=== PATIENT | female | born 1970 | race Two or more races ===

== ENCOUNTER 2021-10-13 11:41 | Emergency (ER) | payer OTHER ==
[~2021-10-13] VITALS: Ht 160 cm; Wt 55.1 kg
[2021-10-13 12:51] VITALS: BP 137/69
[2021-10-13 13:27] LABS: BILIRUBIN,URINE NEGATIVE (NEG); CLARITY,URINE CLOUDY; COLOR,URINE YELLOW; NITRITE,URINE POSITIVE (NEG); PROTEIN,URINE 100 mg/dL (NEG-TRACE); UROBILINOGEN,URINE 0.2 mg/dL (0.2 mg/dL)
[2021-10-13 13:41] LABS: BACTERIA,URINE MANY /HPF (0-FEW); RBC,URINE OCC /HPF (0-2); WBC,URINE >40 /HPF (0-4)
[2021-10-13 13:47] LABS: INFLUENZA A PATIENT NEGATIVE (NEGATIVE); INFLUENZA B PATIENT NEGATIVE (NEGATIVE)
[2021-10-13] MEDS ORDERED: CEPH500T PO (14:23)
--- NOTE | 2021-10-13 14:24 | PHYS DOC ---
Past Medical History Past Surgical History: No Surgical History Smoking Status: Never Smoker Alcohol Use: None Drug Use: None Adult General Chief Complaint Chief Complaint: MULTIPLE COMPLAINTS HPI HPI Patient is a 51 year old female who presents with nausea, vomiting, low back pain, fever, fatigue and headache that began approximately 1 week ago. Patient states that she arrived from [place] 8 days ago. She finished ampicillin antibiotic treatment for UTI 10 days ago, but continues to have some discomfort on urination. She is worried that her current symptoms may be due to continued UTI or possible other illness. She states her symptoms now feel different than when she was originally diagnosed with UTI. Patient reports she got vaccinated against COVID-19 in July of last year. Shortly after, she became infected with COVID-19. She denies abdominal pain, diarrhea, constipation, hematuria, focal weakness or paresthesias. She has no other complaints at this time. Patient is [place] Citizen-speaking. Interview and exam conducted in [place] Citizen. Review of Systems Review of Systems Constitutional: See HPI Eyes: Denies change in visual acuity, redness, or eye pain HENT: Denies nasal congestion or sore throat Respiratory: Denies cough or shortness of breath Cardiovascular: No additional information not addressed in HPI GI: See HPI : See HPI Musculoskeletal: See HPI Integument: Denies rash or skin lesions Neurologic: See HPI All other systems were reviewed and found to be within normal limits, except as documented in this note. Allergies Allergies Allergies Coded Allergies Type Severity Reaction Last Updated Verified No Known Drug Allergies 10/13/21 No Physical Exam Physical Exam Constitutional: Well developed, well nourished, no acute distress, non-toxic appearance. HENT: Normocephalic, atraumatic, bilateral external ears normal, nose normal. Eyes: EOMI, conjunctiva normal, no discharge. Neck: Normal range of motion, no stridor. Skin: Warm, dry, no erythema, no rash. Extremities: No tenderness, no cyanosis, no clubbing, ROM intact, no edema. Neurologic: Alert and oriented x4, steady and symmetrical gait, no focal deficits noted. Current Patient Data Vital Signs Vital Signs Date Time Temp Pulse Resp B/P (MAP) Pulse Ox O2 Delivery O2 Flow Rate FiO2 10/13/21 12:51 99.1 97 16 137/69 (91) 97 Room Air 99.1 Lab Values Laboratory Tests Test 10/13/21 13:20 Urine Collection Type Unknown Urine Color Yellow Urine Clarity Cloudy Urine pH 5.0 (<5.0-8.0) Urine Specific [place] 1.025 (1.000-1.030) Urine Protein 100 mg/dL (NEG-TRACE) Urine Glucose (UA) >=1000 mg/dL (NEG) Urine Ketones (Stick) 15 mg/dL (NEG) Urine Blood Small (NEG) Urine Nitrite Positive (NEG) Urine Bilirubin Negative (NEG) Urine Urobilinogen Dipstick 0.2 mg/dL (0.2 mg/dL) Urine Leukocyte Esterase Moderate (NEG) Urine RBC Occ /HPF (0-2) Urine WBC >40 /HPF (0-4) Urine Bacteria Many /HPF (0-FEW) Influenza Type A Antigen Negative (NEGATIVE) Influenza Type B Antigen Negative (NEGATIVE) Course & Med Decision Making Course & Med Decision Making Pertinent Labs and Imaging studies reviewed. (See chart for details) Patient is a 51-year-old female who recently underwent treatment for UTI who presents with multiple symptoms concerning for viral illness versus persistent UTI, or possibly both. COVID-19 infection cannot be excluded. Work-up today will include urinalysis, swabs for influenza A&B, COVID-19. Urinalysis does show evidence of UTI. Antibiotic treatment with ampicillin failed. Swabs for influenza A&B are negative. Patient advised that COVID-19 swab test results would not be available until tomorrow the next day. Treatment going forward will consist of supportive treatment and quarantine until COVID-19 test results become available. Additionally, patient will be treated with Keflex for her UTI. She was provided with return precautions. Patient and her family member at bedside understand and are agreeable to discharge plan. Dragon Disclaimer Dragon Disclaimer This electronic medical record was generated, in whole or in part, using a voice recognition dictation system. Departure Departure Impression: Primary Impression: UTI (urinary tract infection) Additional Impression: Person under investigation for COVID-19 Disposition: 01 HOME / SELF CARE / HOMELESS Condition: STABLE Patient Instructions: Urinary Tract Infection, [id number] Additional Instructions: Siga las siguientes medidas de tratamiento de apoyo: - Humidificador de vapor fro con agua corriente al lado de la cama mientras duerme - Mucinex (guaifenesina) segn instrucciones de la caja - Alternar ibuprofeno y paracetamol cada cuatro horas para asher corporales/fiebre/dolor de sam Si le recetaron antibiticos, tmelos segn las indicaciones. Le bautista hecho gregoria prueba o le bautista diagnosticado gregoria infeccin por COVID-19. Es gregoria infeccin causada por un nuevo tipo de coronavirus. COVID-19 causar sntomas de gripe leves o similares a los de un resfriado en la mayora. Puede causar sntomas ms graves, katarzyna problemas para respirar en algunos. No hay tratamiento para el COVID-19. El cuerpo eliminar la infeccin con el tiempo. El autocuidado ayudar a aliviar las molestias. Pasos a seguir: - Descansar segn sea necesario. - Elija alimentos saludables que incluyan frutas y verduras. Neha agua fe todo el da. - Duerma lo suficiente cada noche. - Si fuma, trate de dejarlo. Puede facilitar la respiracin. - Evite el alcohol. - Mantenga a los dems saludables - El virus puede propagarse a otros. Las gotas se liberan cada vez que estornuda o tose. Las gotas pueden entrar en la boca, la nariz o los ojos de las personas cercanas a usted y provocar gregoria infeccin. Para reducir las posibilidades de propagar el COVID-19 a otras personas: Qudese en casa hasta que zheng mdico le haya dicho que es seguro irse. Si brian positivo, esto significar permanecer aislado hasta que ambos de los siguientes jeremy ciertos: - Bautista pasado al menos 7 reynaga desde el inicio de la enfermedad. - Est ela de fiebre fe al menos 72 horas sin el uso de medicamentos. Fe nicole tiempo: - Evite las reas pblicas, los eventos o el transporte. No regrese al trabajo oa la escuela hasta que zheng mdico le haya dicho que es seguro hacerlo. - Llame con antelacin si necesita acudir a un centro mdico. Hgales saber que puede tener COVID-19. Les ayudar a guiarlo a dnde ir. Tiarra pueden pedirle que use gregoria mscara facial cuando venga a la oficina. - Si llama a los servicios mdicos de emergencia, infrmeles que puede tener COVID-19. Mientras est en casa: - Trate de evitar el contacto cercano con otras personas. Mantngase a unos 6 pies de distancia. - Si es posible, pase la mayor parte de zheng tiempo en gregoria habitacin separada de los dems. - Use gregoria mscara facial si estar en contacto cercano con otras personas, katarzyna compartir gregoria habitacin o un vehculo. - Pdale a alguien que limpie las superficies comunes de la casa. Use limpiadores domsticos todos los reynaga en reas katarzyna manijas de yennifer, mostradores o fregaderos. - Toser o estornudar en un pauelo desechable. Deseche el pauelo inmediatamente despus de usarlo. Si no hay un pauelo disponible, tosa o estornude en el codo. - Lavarse las malia con frecuencia. Lvelos despus de estornudar o toser. Use agua y jabn y lave o por lo menos 20 segundos. Se puede usar un limpiador de malia a base de alcohol si no hay agua y jabn disponibles. - No prepare comida para otros. Evite compartir artculos personales katarzyna tenedores, cucharas o cepillos de dientes. - Evite el contacto cercano con mascotas mientras est enfermo. No hay evidencia de que el virus pase a las mascotas. Nicole es un paso de seguridad hasta que se sepa ms sobre nicole virus. - El aislamiento puede ser frustrante. La interaccin social puede ayudar. Mantngase en contacto con amigos y familiares a travs del telfono y las opciones tecnolgicas. Todava puede interactuar con otras personas en zheng hogar, solo mantenga gregoria distancia arredondo de aproximadamente 6 pies. Hacer un seguimiento: - El consultorio de zheng mdico se comunicar con usted para alejo si hay algn c ambio en zheng echo. - Es posible que se le pida que lleve un registro de los sntomas para compartir con ellos. Tambin le avisarn cuando tenga autorizacin para volver a estar en pblico. Comunquese con zheng mdico si zheng recuperacin no va katarzyna esperaba. Obtenga atencin de emergencia si tiene problemas katarzyna: - Dificultad para respirar con saturacin de oxgeno <90% - Dolor o presin en el pecho sin parar - Cambios en la conciencia, confusin o problemas para despertarse - Los labios o la radha tienen un color azulado - Empeoramiento de los sntomas Si kevin que tiene gregoria emergencia, llame a los servicios mdicos de emergencia de inmediato. Tomado de [facility] Cephalexin (CEPHALEXIN) 500 Mg Tablet 1 TAB PO BID, #20 TAB Prov: VIVIANA PRATHER 10/13/21 Problem Qualifiers Primary Impression: UTI (urinary tract infection) Urinary tract infection type: acute cystitis Hematuria presence: without hematuria Qualified Codes: N30.00 - Acute cystitis without hematuria VIVIANA PRATHER Oct 13, 2021 14:24
--- NOTE | 2021-10-14 15:04 | NUR ---
IP: Informed pt of negative covid test. Pt verbalized understanding.
== END 2021-10-13 14:55 | disposition home or self-care (01) ==
LOC: ER 11:41
DX: N39.0 Urinary tract infection, site not specified (principal); Z20.822 Contact with and (suspected) exposure to COVID-19
CPT/HCPCS: 81001; 87086; 87428; 99283; U0003; U0005; 87077; 87186